=== PATIENT | male | born 1930 | race Caucasian/White ===

== ENCOUNTER → 2016-03-01 | Outpatient (CLI) | payer MEDICARE ==
[2016-03-01 14:20] LABS: ALBUMIN 3.5 GM/DL (3.2-5.2); ALBUMIN/GLOBULIN RATIO 1.03 (1.00-1.93); ALKALINE PHOSPHATASE 114 U/L (45-117); ALT/SGPT 23 U/L (12-78); ANION GAP 10 MEQ/L (8-16); AST/SGOT 14 U/L (15-37); BILIRUBIN,TOTAL 0.5 MG/DL (0.2-1.0); BLOOD UREA NITROGEN 26 MG/DL (7-18); CARBON DIOXIDE LEVEL 27 MEQ/L (21-32); CHLORIDE LEVEL 104 MEQ/L (98-107); CREATININE FOR GFR 1.19 MG/DL (0.70-1.30); GLOMERULAR FILTRATION RATE > 60.0 (>35); GLUCOSE, FASTING 123 MG/DL (83-110); POTASSIUM SERUM 4.1 MEQ/L (3.5-5.1); SODIUM LEVEL 141 MEQ/L (136-145); TOTAL PROTEIN 6.9 GM/DL (6.4-8.2); URIC ACID 4.7 MG/DL (3.5-7.2)
== END ==
LOC: M LAB 11:23
PROVIDERS: ATTEND Emergency Medicine
DX: I10 Essential (primary) hypertension (principal)

== ENCOUNTER → 2016-04-03 | Outpatient (CLI) | payer MEDICARE ==
[2016-04-03 14:00] LABS: ALBUMIN 3.6 GM/DL (3.2-5.2); ALBUMIN/GLOBULIN RATIO 0.97 (1.00-1.93); BILIRUBIN,TOTAL 0.7 MG/DL (0.2-1.0); CALCIUM LEVEL 9.2 MG/DL (8.8-10.2); CREATININE FOR GFR 1.33 MG/DL (0.70-1.30); GLOMERULAR FILTRATION RATE 54.5 (>35); POTASSIUM SERUM 4.5 MEQ/L (3.5-5.1); TOTAL PROTEIN 7.3 GM/DL (6.4-8.2); URIC ACID 4.5 MG/DL (3.5-7.2)
== END ==
LOC: M WUC 09:44
PROVIDERS: ATTEND Emergency Medicine
DX: F43.23 Adjustment disorder with mixed anxiety and depressed mood (principal); M10.9 Gout, unspecified; I10 Essential (primary) hypertension

== ENCOUNTER → 2016-04-17 | Day surgery (SDC) | payer MEDICARE ==
[~2016-04-17] VITALS: Ht 160 cm; Wt 68.9 kg
[~2016-04-17] MED LIST: ALLO15TA PO; ALPR1TAB6 PO; ASPI81TA85 PO; BACT2OIN12; BETAMETHASONE SOLUSPAN 6MG/ML INJ 5ML (J0702) As Ordered ONE; BSS with VANC/TOB/EPI for EYE CASES IR ONE; CYCLOPENTOLATE 2% OPHTH SOLN As Ordered ONE; CYCLOPENTOLATE 2% OPHTH SOLN OS ONE; FINA5TAB2 PO; FISH306C PO; FOSI10TA10 PO; HEALON DUET (HEALON 10MG/ML 0.55ML & HEALON ENDOCOAT 30MG/ML 0.85ML) As Ordered ONE; LIDOCAINE 1% SDV 5 ML VIAL As Ordered ONE; LIDOCAINE 2% W/EPIN INJ 20ML **PRES FREE As Ordered ONE; LIDOCAINE 4% INJ 5 ML AMP OU ONE; MAGN400C2 PO; MIDAZOLAM INJ 2 MG/2 ML VIAL (J2250) As Ordered ONE; MOXIFLOXACIN IN BSS 0.25MG/0.25ML INTRACAMERAL INJ (OR EYE ONLY)(J2280) As Ordered ONE; MULT1TAB18 PO; OFLOXACIN 0.3 % (OCUFLOX) OPTH SOL 5ML As Ordered ONE; OFLOXACIN 0.3 % (OCUFLOX) OPTH SOL 5ML OS ONE; OMEP20CA3 PO; OSTETAB4 PO; PARO30TA PO; PHENYLEPHRINE 2.5% OPHTH SOL 2ML As Ordered ONE; PHENYLEPHRINE 2.5% OPHTH SOL 2ML OS ONE; POVIDONE-IODINE 5% OPHTH PREP SOL 30ML As Ordered ONE; TOBRADEX OPHTH OINT 3.5 GM As Ordered ONE; TOBRAMYCIN INJ 80 MG/2 ML VIAL (J3260) As Ordered ONE; TRIAMCINOLONE PRES FR 40 MG/ML 1ML(TRIESENCE)(OR EYE ONLY)(J3300 PER 1MG) As Ordered ONE; TROPICAMIDE 1% OPHTH SOLN 2 ML As Ordered ONE; TROPICAMIDE 1% OPHTH SOLN 2 ML OS ONE; VITA-115 PO; VITA250011 PO; fentaNYL 100 MCG/2 ML INJECTION (J3010) As Ordered ONE
[2016-04-17 12:40] VITALS: BP 137/70
== END | disposition home or self-care (01) ==
LOC: M SDC 08:43
PROVIDERS: ATTEND Ophthalmology
DX: H26.9 Unspecified cataract (principal); K21.9 Gastro-esophageal reflux disease without esophagitis; F41.9 Anxiety disorder, unspecified; F32.9 Major depressive disorder, single episode, unspecified; S01.20XD Unspecified open wound of nose, subsequent encounter; Z88.2 Allergy status to sulfonamides; Z91.012 Allergy to eggs; Z91.048 Other nonmedicinal substance allergy status; Z91.041 Radiographic dye allergy status; Z79.899 Other long term (current) drug therapy; Z79.82 Long term (current) use of aspirin
CPT/HCPCS: 66984; J0702; J2250; J2280; J3010; J3260; J3300; V2632

== ENCOUNTER 2016-08-16 08:22 | Emergency (ER) | payer MEDICARE ==
[~2016-08-16] VITALS: Ht 165.1 cm; Wt 65.9 kg
[~2016-08-16 08:22] MED LIST changes: -BETAMETHASONE SOLUSPAN 6MG/ML INJ 5ML (J0702) As Ordered ONE; -BSS with VANC/TOB/EPI for EYE CASES IR ONE; -CYCLOPENTOLATE 2% OPHTH SOLN As Ordered ONE; -CYCLOPENTOLATE 2% OPHTH SOLN OS ONE; -FOSI10TA10 PO; +FOSI10TA2 PO; -HEALON DUET (HEALON 10MG/ML 0.55ML & HEALON ENDOCOAT 30MG/ML 0.85ML) As Ordered ONE; -LIDOCAINE 1% SDV 5 ML VIAL As Ordered ONE; -LIDOCAINE 2% W/EPIN INJ 20ML **PRES FREE As Ordered ONE; -LIDOCAINE 4% INJ 5 ML AMP OU ONE; -MIDAZOLAM INJ 2 MG/2 ML VIAL (J2250) As Ordered ONE; -MOXIFLOXACIN IN BSS 0.25MG/0.25ML INTRACAMERAL INJ (OR EYE ONLY)(J2280) As Ordered ONE; -OFLOXACIN 0.3 % (OCUFLOX) OPTH SOL 5ML As Ordered ONE; -OFLOXACIN 0.3 % (OCUFLOX) OPTH SOL 5ML OS ONE; -PHENYLEPHRINE 2.5% OPHTH SOL 2ML As Ordered ONE; -PHENYLEPHRINE 2.5% OPHTH SOL 2ML OS ONE; -POVIDONE-IODINE 5% OPHTH PREP SOL 30ML As Ordered ONE; -TOBRADEX OPHTH OINT 3.5 GM As Ordered ONE; -TOBRAMYCIN INJ 80 MG/2 ML VIAL (J3260) As Ordered ONE; -TRIAMCINOLONE PRES FR 40 MG/ML 1ML(TRIESENCE)(OR EYE ONLY)(J3300 PER 1MG) As Ordered ONE; -TROPICAMIDE 1% OPHTH SOLN 2 ML As Ordered ONE; -TROPICAMIDE 1% OPHTH SOLN 2 ML OS ONE; -fentaNYL 100 MCG/2 ML INJECTION (J3010) As Ordered ONE
[2016-08-16] MEDS ORDERED: CLON0.5T PO (08:56)
[2016-08-16] MEDS ORDERED: MORPHINE 2 MG/ML 1ML SYRINGE IV ONE (10:00)
--- NOTE | 2016-08-16 10:26 | REP ---
Clinical: Left flank pain. Comparison: 12/20/2008 Findings: Mild acute left-sided obstructive uropathy with hydroureteronephrosis, perinephric and periureteral stranding secondary to a 2 mm obstructing calculus in the distal left ureter (image [id number]). Multiple small bilateral renal calculi are identified measuring up to 3 mm. Liver, spleen, pancreas, bilateral adrenal glands are normal for noncontrast evaluation. The enteric system is without obstruction or acute inflammatory process. Normal terminal ileum and appendix identified in the right lower quadrant. Sigmoid diverticulosis noted without acute diverticulitis. Pelvis demonstrates an enlarged prostate gland measuring 4.8 cm transverse diameter having mass effect on the otherwise normal bladder. Atherosclerotic changes of the aorta and vasculature without aneurysm. Lung bases demonstrate left lower lobe consolidation and trace fibroatelectatic changes. Mild cardiomegaly. Impression: 1. Acute left-sided obstructive uropathy with hydronephrosis and periureteral stranding secondary to a 2 mm obstructing calculus in the distal left ureter. Bilateral nonobstructing calculi measure up to 3 mm. 2. Small right lower lobe consolidation and bibasilar fibro atelectatic changes may warrant followup to resolution. 3. Enlarged prostate gland with mass effect on the base of the bladder. 4. Sigmoid diverticulosis without acute diverticulitis. Signed by Elias Youngblood MD 08/16/2016 10:18 A
[2016-08-16 10:30] LABS: BASO % 0.5 % (0.0-1.0); EOS # 0.2 K/mm3 (0.0-0.50); EOS % 1.8 % (0.0-3.0); LARGE UNSTAINED CELL # 0.1 K/mm3 (0.0-0.4); LARGE UNSTAINED CELL % 0.9 % (0.0-4.0); LYMPH # 1.7 K/mm3 (1.5-4.5); LYMPH % 16.5 % (24.0-44.0); MEAN CORPUSCULAR HEMOGLOBIN 31.2 pg (27.0-33.0); MEAN CORPUSCULAR HGB CONC 32.8 g/dl (32.0-36.5); MEAN CORPUSCULAR VOLUME 94.9 fl (80.0-96.0); MONO # 0.4 K/mm3 (0.0-0.8); MONO % 3.5 % (0.0-5.0); NEUTROPHILS # 7.7 K/mm3 (1.8-7.7); NEUTROPHILS % 76.9 % (36.0-66.0); PLATELET COUNT, AUTOMATED 291 k/mm3 (150-450)
[2016-08-16 10:43] LABS: ANION GAP 6 MEQ/L (8-16); BLOOD UREA NITROGEN 21 MG/DL (7-18); CALCIUM LEVEL 7.2 MG/DL (8.8-10.2); CARBON DIOXIDE LEVEL 25 MEQ/L (21-32); CHLORIDE LEVEL 112 MEQ/L (98-107); CREATININE FOR GFR 0.89 MG/DL (0.70-1.30); GLOMERULAR FILTRATION RATE > 60.0 (>35); GLUCOSE, FASTING 112 MG/DL (83-110); POTASSIUM SERUM 3.6 MEQ/L (3.5-5.1); SODIUM LEVEL 143 MEQ/L (136-145)
[2016-08-16] MEDS ORDERED: MORPHINE 4 MG/ML 1ML SYRINGE IV ONE (11:00)
[2016-08-16] MEDS ORDERED: ONDANSETRON 4MG/2ML VIAL (J2405) IV ONE (11:00)
[2016-08-16] MEDS ORDERED: TAMSULOSIN 0.4 MG CAP PO ONE (11:30)
[2016-08-16] MEDS ORDERED: FLOM5CAP PO (11:53)
[2016-08-16] MEDS ORDERED: NORC1TAB4 PO (11:56)
[2016-08-16 12:36] VITALS: BP 133/73
== END 2016-08-16 12:39 | disposition home or self-care (01) ==
LOC: M ED 08:22
DX: N20.0 Calculus of kidney (principal); Z87.442 Personal history of urinary calculi; Z91.012 Allergy to eggs; Z91.041 Radiographic dye allergy status; Z88.2 Allergy status to sulfonamides; Z79.899 Other long term (current) drug therapy; Z79.82 Long term (current) use of aspirin
CPT/HCPCS: 74176; 80048; 81001; 85025; 93041; 96374; 96375; 96376; 99284; J2405

== ENCOUNTER → 2016-08-27 | Day surgery (SDC) | payer MEDICARE ==
[~2016-08-27] VITALS: Ht 160 cm; Wt 71.7 kg
[~2016-08-27] MED LIST changes: +BSS with VANC/TOB/EPI for EYE CASES IR ONE; +CLON0.5T PO; +CYCLOPENTOLATE 2% OPHTH SOLN 2ML BTL OS ONE; +FLOM5CAP PO; +HEALON DUET (HEALON 10MG/ML 0.55ML & HEALON ENDOCOAT 30MG/ML 0.85ML) As Ordered ONE; +LIDOCAINE 1% SDV 5 ML VIAL As Ordered ONE; +LIDOCAINE 2% W/EPIN INJ 20ML **PRES FREE As Ordered ONE; +LIDOCAINE 4% INJ 5 ML AMP OD ONE; +LR 1,000 ML IV ONE; +MIDAZOLAM INJ 2 MG/2 ML VIAL (J2250) As Ordered ONE; +MOXIFLOXACIN IN BSS 0.25MG/0.25ML INTRACAMERAL INJ (OR EYE ONLY)(J2280) As Ordered ONE; +NORC1TAB4 PO; +OFLOXACIN 0.3 % (OCUFLOX) OPTH SOL 5ML OD ONE; +PHENYLEPHRINE 2.5% OPHTH SOL 2ML OD ONE; +POVIDONE-IODINE 5% OPHTH PREP SOL 30ML As Ordered ONE; +TRIAMCINOLONE PRES FR 40 MG/ML 1ML(TRIESENCE)(OR EYE ONLY)(J3300 PER 1MG) As Ordered ONE; +TROPICAMIDE 1% OPHTH SOLN 2ML OD ONE; +fentaNYL 100 MCG/2 ML INJECTION (J3010) As Ordered ONE
[2016-08-27 08:35] VITALS: BP 155/77
== END | disposition home or self-care (01) ==
LOC: M SDC 06:05
PROVIDERS: ATTEND Ophthalmology
DX: H26.9 Unspecified cataract (principal); I10 Essential (primary) hypertension; E78.00 Pure hypercholesterolemia, unspecified; K21.9 Gastro-esophageal reflux disease without esophagitis; F41.9 Anxiety disorder, unspecified; F32.9 Major depressive disorder, single episode, unspecified; N40.0 Benign prostatic hyperplasia without lower urinary tract symptoms; Z88.2 Allergy status to sulfonamides; Z91.012 Allergy to eggs; Z91.048 Other nonmedicinal substance allergy status; Z91.041 Radiographic dye allergy status; Z79.899 Other long term (current) drug therapy; Z79.82 Long term (current) use of aspirin; Z87.442 Personal history of urinary calculi; Z87.891 Personal history of nicotine dependence
CPT/HCPCS: 66984; J2250; J2280; J3010; J3300; V2632

== ENCOUNTER → 2016-09-27 | Outpatient (CLI) | payer MEDICARE ==
[~2016-09-27] MED LIST changes: -BSS with VANC/TOB/EPI for EYE CASES IR ONE; -CYCLOPENTOLATE 2% OPHTH SOLN 2ML BTL OS ONE; -HEALON DUET (HEALON 10MG/ML 0.55ML & HEALON ENDOCOAT 30MG/ML 0.85ML) As Ordered ONE; -LIDOCAINE 1% SDV 5 ML VIAL As Ordered ONE; -LIDOCAINE 2% W/EPIN INJ 20ML **PRES FREE As Ordered ONE; -LIDOCAINE 4% INJ 5 ML AMP OD ONE; -LR 1,000 ML IV ONE; -MIDAZOLAM INJ 2 MG/2 ML VIAL (J2250) As Ordered ONE; -MOXIFLOXACIN IN BSS 0.25MG/0.25ML INTRACAMERAL INJ (OR EYE ONLY)(J2280) As Ordered ONE; -OFLOXACIN 0.3 % (OCUFLOX) OPTH SOL 5ML OD ONE; -PHENYLEPHRINE 2.5% OPHTH SOL 2ML OD ONE; -POVIDONE-IODINE 5% OPHTH PREP SOL 30ML As Ordered ONE; -TRIAMCINOLONE PRES FR 40 MG/ML 1ML(TRIESENCE)(OR EYE ONLY)(J3300 PER 1MG) As Ordered ONE; -TROPICAMIDE 1% OPHTH SOLN 2ML OD ONE; -fentaNYL 100 MCG/2 ML INJECTION (J3010) As Ordered ONE
== END ==
LOC: M WUC 11:37
PROVIDERS: ATTEND Ophthalmology
DX: I77.6 Arteritis, unspecified (principal)

== ENCOUNTER → 2016-10-01 | Outpatient (CLI) | payer MEDICARE ==
[2016-10-01 13:51] LABS: ALBUMIN 3.3 GM/DL (3.2-5.2); ANION GAP 8 MEQ/L (8-16); BLOOD UREA NITROGEN 30 MG/DL (7-18); CALCIUM LEVEL 8.3 MG/DL (8.8-10.2); CARBON DIOXIDE LEVEL 28 MEQ/L (21-32); CHLORIDE LEVEL 110 MEQ/L (98-107); CHOLESTEROL LEVEL 183 MG/DL (<200); CREATININE FOR GFR 1.08 MG/DL (0.70-1.30); FOLATE > 24.0 NG/ML; GLOMERULAR FILTRATION RATE > 60.0 (>35); GLUCOSE, FASTING 100 MG/DL (83-110); MAGNESIUM LEVEL 2.3 MG/DL (1.8-2.4); PHOSPHORUS LEVEL 3.5 MG/DL (2.5-4.9); POTASSIUM SERUM 4.5 MEQ/L (3.5-5.1); SODIUM LEVEL 146 MEQ/L (136-145); TRIGLYCERIDES LEVEL 122 MG/DL (<150); URIC ACID 3.9 MG/DL (3.5-7.2); VITAMIN B12 LEVEL > 2000 PG/ML
== END ==
LOC: M WUC 10:04
PROVIDERS: ATTEND Emergency Medicine
DX: G47.62 Sleep related leg cramps (principal); E55.9 Vitamin D deficiency, unspecified; Z79.899 Other long term (current) drug therapy

== ENCOUNTER → 2017-02-26 | Outpatient (CLI) | payer MEDICARE ==
[2017-02-26 13:44] LABS: BASO # 0.1 10^3/uL (0.0-0.2); BASO % 0.9 % (0.0-1.0); EOS # 1.1 10^3/uL (0.0-0.50); EOS % 12.1 % (0.0-3.0); HEMATOCRIT 44.3 % (42.0-52.0); HEMOGLOBIN 14.2 g/dl (14.0-18.0); IMMATURE GRANULOCYTE % 0.3 % (0-0); LYMPH # 1.7 10^3/uL (1.5-4.5); LYMPH % 19.2 % (24.0-44.0); MEAN CORPUSCULAR HGB CONC 32.1 g/dl (32.0-36.5); MEAN CORPUSCULAR VOLUME 93.5 fl (80.0-96.0); MONO # 0.7 10^3/uL (0.0-0.8); MONO % 7.8 % (0.0-5.0); NEUTROPHILS # 5.4 10^3/uL (1.8-7.7); NEUTROPHILS % 59.7 % (36.0-66.0); PLATELET COUNT, AUTOMATED 331 10^3/uL (150-450); RED BLOOD COUNT 4.74 10^6/uL (4.30-6.10); RED CELL DISTRIBUTION WIDTH 14.2 % (11.5-14.5)
[2017-02-26 14:06] LABS: FOLATE > 24.0 NG/ML; TOTAL 25(OH) VITAMIN D 35.2 NG/ML (30.0-100.0); VITAMIN B12 LEVEL > 2000 PG/ML
[2017-02-26 14:09] LABS: ALBUMIN 3.6 GM/DL (3.2-5.2); ALBUMIN/GLOBULIN RATIO 1.09 (1.00-1.93); ALKALINE PHOSPHATASE 137 U/L (45-117); ALT/SGPT 28 U/L (12-78); ANION GAP 5 MEQ/L (8-16); AST/SGOT 20 U/L (7-37); BILIRUBIN,TOTAL 0.3 MG/DL (0.2-1.0); BLOOD UREA NITROGEN 28 MG/DL (7-18); CALCIUM LEVEL 9.5 MG/DL (8.8-10.2); CARBON DIOXIDE LEVEL 30 MEQ/L (21-32); CHLORIDE LEVEL 107 MEQ/L (98-107); CHOLESTEROL LEVEL 181 MG/DL (<200); CHOLESTEROL RISK RATIO 2.873 (<5); CREATININE FOR GFR 1.05 MG/DL (0.70-1.30); GLOMERULAR FILTRATION RATE > 60.0 (>35); GLUCOSE, FASTING 115 MG/DL (83-110); HDL CHOLESTEROL 63 MG/DL (>40); LDL CHOLESTEROL 92.6 MG/DL (<100); MAGNESIUM LEVEL 2.2 MG/DL (1.8-2.4); NON-HDL-C 118 MG/DL; POTASSIUM SERUM 4.7 MEQ/L (3.5-5.1); SODIUM LEVEL 142 MEQ/L (136-145); TOTAL PROTEIN 6.9 GM/DL (6.4-8.2); TRIGLYCERIDES LEVEL 127 MG/DL (<150); URIC ACID 3.7 MG/DL (3.5-7.2)
== END ==
LOC: M WUC 09:34
DX: G47.62 Sleep related leg cramps (principal); E55.9 Vitamin D deficiency, unspecified; R25.3 Fasciculation; I10 Essential (primary) hypertension; M10.9 Gout, unspecified; R25.2 Cramp and spasm
CPT/HCPCS: 82746

== ENCOUNTER → 2017-04-04 | Outpatient (REF) | payer MEDICARE ==
[2017-04-04 14:12] LABS: TOTAL PROTEIN 6.5 GM/DL (6.4-8.2)
[2017-04-04 14:17] LABS: VITAMIN B12 LEVEL > 2000 PG/ML (247-911)
[2017-04-04 14:18] LABS: ESTIMATED AVERAGE GLUCOSE 120 MG/DL (60-110); FOLATE > 24.0 NG/ML (>5.4); HEMOGLOBIN A1c 5.8 %
[2017-04-06 08:06] LABS: CERULOPLASMIN 24.2 mg/dL (16.0-31.0)
[2017-04-06 08:06] LABS: COPPER PLASMA 110 ug/dL (72-166)
[2017-04-09 10:32] LABS: ALBUMIN % 55.9 % (55.8-66.1); ALPHA-1-GLOBULIN % 4.6 % (2.9-4.9); ALPHA-2-GLOBULINS % 11.1 % (7.1-11.8); BETA-1-GLOBULINS % 7.6 % (4.7-7.2); BETA-2-GLOBULINS % 5.2 % (3.2-6.5)
[2017-04-09 10:33] LABS: ALBUMIN 3.63 GM/DL (3.29-5.55); ALPHA-2-GLOBULINS 0.72 GM/DL (0.42-0.99); BETA-1-GLOBULINS 0.49 GM/DL (0.28-0.60); BETA-2-GLOBULINS 0.34 GM/DL (0.19-0.55); GAMMA GLOBULIN % 15.6 % (11.1-18.8); GAMMA GLOBULINS 1.01 GM/DL (0.65-1.58)
== END ==
LOC: M LABNEURO 09:37
DX: E11.40 Type 2 diabetes mellitus with diabetic neuropathy, unspecified (principal); E61.0 Copper deficiency
CPT/HCPCS: 82525

== ENCOUNTER 2017-04-25 09:44 | Inpatient (IN) | payer MEDICARE ==
[2017-04-25 10:21] LABS: BASO # 0.1 10^3/uL (0.0-0.2); BASO % 0.8 % (0.0-1.0); EOS # 1.3 10^3/uL (0.0-0.50); EOS % 12.3 % (0.0-3.0); HEMATOCRIT 42.5 % (42.0-52.0); HEMOGLOBIN 13.9 g/dl (14.0-18.0); IMMATURE GRANULOCYTE % 0.3 % (0-3.0); LYMPH # 1.7 10^3/uL (1.5-4.5); LYMPH % 16.5 % (24.0-44.0); MEAN CORPUSCULAR HEMOGLOBIN 29.6 pg (27.0-33.0); MEAN CORPUSCULAR HGB CONC 32.7 g/dl (32.0-36.5); MEAN CORPUSCULAR VOLUME 90.6 fl (80.0-96.0); MONO # 0.8 10^3/uL (0.0-0.8); MONO % 7.2 % (0.0-5.0); NEUTROPHILS # 6.6 10^3/uL (1.8-7.7); NEUTROPHILS % 62.9 % (36.0-66.0); PLATELET COUNT, AUTOMATED 301 10^3/uL (150-450); RED BLOOD COUNT 4.69 10^6/uL (4.30-6.10); RED CELL DISTRIBUTION WIDTH 13.5 % (11.5-14.5); WHITE BLOOD COUNT 10.5 10^3/uL (4.0-10.0)
[2017-04-25 10:31] LABS: INR 0.94; PROTHROMBIN TIME 12.7 SECONDS (12.4-14.5)
[2017-04-25] MEDS: diphenhydrAMINE INJ 50MG/ML VIAL (J1200) IV (10:33)
[2017-04-25] MEDS: ONDANSETRON 4MG/2ML VIAL (J2405) IV (10:33)
[2017-04-25 10:48] LABS: NT-PRO BNP 54 PG/ML (<450)
[2017-04-25 10:48] LABS: ALBUMIN 2.9 GM/DL (3.2-5.2); ALBUMIN/GLOBULIN RATIO 0.78 (1.00-1.93); ALKALINE PHOSPHATASE 119 U/L (45-117); ALT/SGPT 19 U/L (12-78); ANION GAP 6 MEQ/L (8-16); AST/SGOT 13 U/L (7-37); BILIRUBIN,DIRECT < 0.1 MG/DL (0.0-0.2); BILIRUBIN,TOTAL 0.3 MG/DL (0.2-1.0); BLOOD UREA NITROGEN 31 MG/DL (7-18); CALCIUM LEVEL 8.8 MG/DL (8.8-10.2); CARBON DIOXIDE LEVEL 32 MEQ/L (21-32); CHLORIDE LEVEL 104 MEQ/L (98-107); CK-MB VALUE MASS 2.3 NG/ML (0.0-3.6); CPK CREATINE PHOSPHOKINASE 49 U/L (39-308); CREATININE FOR GFR 1.09 MG/DL (0.70-1.30); GLOMERULAR FILTRATION RATE > 60.0 (>35); GLUCOSE, FASTING 132 MG/DL (70-100); LIPASE 106 U/L (73-393); MB/CK RELATIVE INDEX 4.69 (< OR =4); POTASSIUM SERUM 3.8 MEQ/L (3.5-5.1); SODIUM LEVEL 142 MEQ/L (136-145); TOTAL PROTEIN 6.6 GM/DL (6.4-8.2); TROPONIN I < 0.02 NG/ML (< 0.10)
[2017-04-25] MEDS ORDERED: ISOVUE-370 76% 100ML VIAL (Q9967) As Ordered (11:25)
[2017-04-25] MEDS: ACETAMINOPHEN TAB 650MG DOSE (2X325MG) PO (11:26)
[2017-04-25] MEDS ORDERED: IPRATROPIUM 0.5MG/ALBUTEROL 2.5MG INH SOL UD 3ML (DUONEB)(J7620) NEB (14:15)
[2017-04-25] MEDS ORDERED: ACETAMINOPHEN TAB 650MG DOSE (2X325MG) PO (14:15)
[2017-04-25] MEDS ORDERED: ONDANSETRON 4MG/2ML VIAL (J2405) IV ×2 (14:15→15:45)
[2017-04-25 14:52] LABS: TOTAL 25(OH) VITAMIN D 50.7 NG/ML (30.0-100.0)
[2017-04-25 15:00] LABS: MAGNESIUM LEVEL 2.1 MG/DL (1.8-2.4)
[2017-04-25] MEDS ORDERED: fentaNYL 100 MCG/2 ML INJECTION (J3010) IV (15:45)
[2017-04-25] MEDS ORDERED: METOCLOPRAMIDE INJ 10MG/2ML VIAL (J2765) IV (15:45)
[2017-04-25] MEDS ORDERED: PERCOCET 5MG/325MG TAB PO (15:45)
[2017-04-25] MEDS: LR 1,000 ML IV (15:45)
[2017-04-25] MEDS ORDERED: MEPERIDINE INJ 25 MG/ML VIAL (J2175) IV (15:45)
[2017-04-25] MEDS: AZITHROMYCIN INJ 500 MG, VIAL MATE ADAPTER 1 EACH in D5W 250 ML IV (16:14)
[2017-04-25] MEDS: FINASTERIDE 5 MG TAB PO (18:03)
[2017-04-25] MEDS: CEFTRIAXONE SOD 1 GM in APPROPRIATE DILUENT 1 EA IV (18:03)
[2017-04-25] MEDS: ALLOPURINOL 300 MG TAB PO (18:03)
[2017-04-25 18:34] LABS: CPK CREATINE PHOSPHOKINASE 40 U/L (39-308); TROPONIN I < 0.02 NG/ML (< 0.10)
[2017-04-25 18:35] LABS: CK-MB VALUE MASS 1.9 NG/ML (0.0-3.6); MB/CK RELATIVE INDEX 4.75 (< OR =4)
[2017-04-25] MEDS: IPRATROPIUM 0.5MG/ALBUTEROL 2.5MG INH SOL UD 3ML (DUONEB)(J7620) NEB (20:05)
[2017-04-25] MEDS ORDERED: ALLOPURINOL 300 MG TAB PO (21:00)
[2017-04-25] MEDS: GABAPENTIN 300 MG CAP PO (21:13)
[2017-04-25] MEDS: ASPIRIN 81 MG ENTERIC TAB PO (21:13)
[2017-04-25] MEDS: PARoxetine 20 MG TAB PO (21:14)
[2017-04-26] MEDS: IPRATROPIUM 0.5MG/ALBUTEROL 2.5MG INH SOL UD 3ML (DUONEB)(J7620) NEB ×4 (01:53→20:20)
[2017-04-26 04:42] LABS: REASON FOR REVIEW WBC/LEUKEMIA/BLAST; SLIDE REVIEW Report; SOURCE PERIPHERAL SMEAR
[2017-04-26 04:43] LABS: BASO # 0.1 10^3/uL (0.0-0.2); BASO % 0.8 % (0.0-1.0); EOS # 1.2 10^3/uL (0.0-0.50); EOS % 12.7 % (0.0-3.0); HEMATOCRIT 40.5 % (42.0-52.0); HEMOGLOBIN 13.3 g/dl (14.0-18.0); IMMATURE GRANULOCYTE % 0.6 % (0-3.0); LYMPH # 2.2 10^3/uL (1.5-4.5); LYMPH % 24.1 % (24.0-44.0); MEAN CORPUSCULAR HEMOGLOBIN 29.7 pg (27.0-33.0); MEAN CORPUSCULAR HGB CONC 32.8 g/dl (32.0-36.5); MEAN CORPUSCULAR VOLUME 90.4 fl (80.0-96.0); MONO # 0.9 10^3/uL (0.0-0.8); MONO % 9.3 % (0.0-5.0); NEUTROPHILS # 4.9 10^3/uL (1.8-7.7); NEUTROPHILS % 52.5 % (36.0-66.0); PLATELET COUNT, AUTOMATED 291 10^3/uL (150-450); RED BLOOD COUNT 4.48 10^6/uL (4.30-6.10); RED CELL DISTRIBUTION WIDTH 13.5 % (11.5-14.5); WHITE BLOOD COUNT 9.3 10^3/uL (4.0-10.0)
[2017-04-26 05:20] LABS: ALBUMIN 2.7 GM/DL (3.2-5.2); ALBUMIN/GLOBULIN RATIO 0.84 (1.00-1.93); ALKALINE PHOSPHATASE 108 U/L (45-117); ALT/SGPT 17 U/L (12-78); ANION GAP 6 MEQ/L (8-16); AST/SGOT 13 U/L (7-37); BILIRUBIN,TOTAL 0.2 MG/DL (0.2-1.0); BLOOD UREA NITROGEN 26 MG/DL (7-18); CALCIUM LEVEL 8.4 MG/DL (8.8-10.2); CARBON DIOXIDE LEVEL 32 MEQ/L (21-32); CHLORIDE LEVEL 105 MEQ/L (98-107); CK-MB VALUE MASS 1.1 NG/ML (0.0-3.6); CPK CREATINE PHOSPHOKINASE 37 U/L (39-308); CREATININE FOR GFR 1.21 MG/DL (0.70-1.30); GLOMERULAR FILTRATION RATE > 60.0 (>35); GLUCOSE, FASTING 100 MG/DL (70-100); MB/CK RELATIVE INDEX 2.97 (< OR =4); SODIUM LEVEL 143 MEQ/L (136-145); TOTAL PROTEIN 5.9 GM/DL (6.4-8.2); TROPONIN I < 0.02 NG/ML (< 0.10)
[2017-04-26 05:52] LABS: PREALBUMIN 22.5 MG/DL (20.0-40.0)
[2017-04-26 09:35] LABS: C REACTIVE PROTEIN QUANTITATIV 0.39 MG/DL (0.00-0.30)
[2017-04-26] MEDS: GABAPENTIN 300 MG CAP PO ×3 (09:37→20:45)
[2017-04-26] MEDS: OMEPRAZOLE 20 MG CAP PO (09:37)
[2017-04-26] MEDS: MAGNESIUM OXIDE 400 MG TAB (MAG-OX) PO (09:37)
[2017-04-26 10:27] LABS: CPK CREATINE PHOSPHOKINASE 39 U/L (39-308); TROPONIN I < 0.02 NG/ML (< 0.10)
[2017-04-26 10:28] LABS: CK-MB VALUE MASS 1.8 NG/ML (0.0-3.6); MB/CK RELATIVE INDEX 4.61 (< OR =4)
[2017-04-26] MEDS: VITAMIN D (CHOLECALCIFEROL) 400 INTERNATIONAL UNITS TAB PO (12:59)
[2017-04-26] MEDS: methylPREDNISolone INJ 125 MG/2 ML VIAL (J2930) IV ×2 (13:00→20:44)
[2017-04-26] MEDS: CEFTRIAXONE SOD 1 GM in APPROPRIATE DILUENT 1 EA IV (15:51)
[2017-04-26] MEDS: AZITHROMYCIN INJ 500 MG, VIAL MATE ADAPTER 1 EACH in D5W 250 ML IV (16:47)
[2017-04-26] MEDS: FINASTERIDE 5 MG TAB PO (17:45)
[2017-04-26] MEDS: ALLOPURINOL 300 MG TAB PO (17:45)
[2017-04-26] MEDS: ASPIRIN 81 MG ENTERIC TAB PO (20:45)
[2017-04-26] MEDS: HEPARIN SOD (PORCINE) 5000 UNITS/ML VIAL SQ (20:52)
[2017-04-26] MEDS: PARoxetine 20 MG TAB PO (20:52)
[2017-04-27] MEDS: IPRATROPIUM 0.5MG/ALBUTEROL 2.5MG INH SOL UD 3ML (DUONEB)(J7620) NEB ×4 (02:08→20:00)
[2017-04-27] MEDS: methylPREDNISolone INJ 125 MG/2 ML VIAL (J2930) IV ×2 (04:07→15:51)
[2017-04-27 05:08] LABS: BASO % 0.1 % (0.0-1.0); HEMATOCRIT 40.4 % (42.0-52.0); HEMOGLOBIN 13.3 g/dl (14.0-18.0); IMMATURE GRANULOCYTE % 0.7 % (0-3.0); LYMPH # 0.7 10^3/uL (1.5-4.5); LYMPH % 5.6 % (24.0-44.0); MEAN CORPUSCULAR HEMOGLOBIN 29.8 pg (27.0-33.0); MEAN CORPUSCULAR HGB CONC 32.9 g/dl (32.0-36.5); MEAN CORPUSCULAR VOLUME 90.6 fl (80.0-96.0); MONO # 0.1 10^3/uL (0.0-0.8); MONO % 0.9 % (0.0-5.0); NEUTROPHILS # 11.5 10^3/uL (1.8-7.7); NEUTROPHILS % 92.7 % (36.0-66.0); PLATELET COUNT, AUTOMATED 314 10^3/uL (150-450); RED BLOOD COUNT 4.46 10^6/uL (4.30-6.10); RED CELL DISTRIBUTION WIDTH 13.5 % (11.5-14.5); WHITE BLOOD COUNT 12.4 10^3/uL (4.0-10.0)
[2017-04-27 05:32] LABS: ALBUMIN/GLOBULIN RATIO 0.75 (1.00-1.93); ALKALINE PHOSPHATASE 113 U/L (45-117); ALT/SGPT 19 U/L (12-78); ANION GAP 10 MEQ/L (8-16); AST/SGOT 9 U/L (7-37); BILIRUBIN,TOTAL 0.2 MG/DL (0.2-1.0); BLOOD UREA NITROGEN 33 MG/DL (7-18); C REACTIVE PROTEIN QUANTITATIV 0.57 MG/DL (0.00-0.30); CARBON DIOXIDE LEVEL 27 MEQ/L (21-32); CHLORIDE LEVEL 104 MEQ/L (98-107); CREATININE FOR GFR 1.31 MG/DL (0.70-1.30); GLOMERULAR FILTRATION RATE 55.4 (>35); GLUCOSE, FASTING 186 MG/DL (70-100); MAGNESIUM LEVEL 2.4 MG/DL (1.8-2.4); POTASSIUM SERUM 3.9 MEQ/L (3.5-5.1); SODIUM LEVEL 141 MEQ/L (136-145)
[2017-04-27] MEDS: clonazePAM 0.5 MG TAB PO ×2 (08:47→20:46)
[2017-04-27] MEDS: OMEPRAZOLE 20 MG CAP PO (08:47)
[2017-04-27] MEDS: GABAPENTIN 300 MG CAP PO ×3 (08:47→20:46)
[2017-04-27] MEDS: MAGNESIUM OXIDE 400 MG TAB (MAG-OX) PO (08:47)
[2017-04-27] MEDS: HEPARIN SOD (PORCINE) 5000 UNITS/ML VIAL SQ ×2 (08:48→20:46)
[2017-04-27] MEDS: VITAMIN D (CHOLECALCIFEROL) 400 INTERNATIONAL UNITS TAB PO (12:13)
[2017-04-27] MEDS: AZITHROMYCIN INJ 500 MG, VIAL MATE ADAPTER 1 EACH in D5W 250 ML IV (15:52)
[2017-04-27] MEDS: CEFTRIAXONE SOD 1 GM in APPROPRIATE DILUENT 1 EA IV (15:52)
[2017-04-27] MEDS ORDERED: methylPREDNISolone INJ 125 MG/2 ML VIAL (J2930) IV (16:00)
[2017-04-27] MEDS: FINASTERIDE 5 MG TAB PO (17:59)
[2017-04-27] MEDS: ALLOPURINOL 300 MG TAB PO (17:59)
[2017-04-27] MEDS: PARoxetine 20 MG TAB PO (20:46)
[2017-04-27] MEDS: ASPIRIN 81 MG ENTERIC TAB PO (20:46)
[2017-04-28] MEDS: IPRATROPIUM 0.5MG/ALBUTEROL 2.5MG INH SOL UD 3ML (DUONEB)(J7620) NEB ×4 (01:44→20:00)
[2017-04-28] MEDS ORDERED: methylPREDNISolone INJ 40 MG/1 ML VIAL (J2920) IV (03:29)
[2017-04-28] MEDS: methylPREDNISolone INJ 40 MG/1 ML VIAL (J2920) IV ×2 (03:47→15:41)
[2017-04-28 04:57] LABS: BASO % 0.1 % (0.0-1.0); HEMATOCRIT 37.9 % (42.0-52.0); HEMOGLOBIN 12.6 g/dl (14.0-18.0); IMMATURE GRANULOCYTE % 0.8 % (0-3.0); LYMPH % 4.7 % (24.0-44.0); MEAN CORPUSCULAR HEMOGLOBIN 29.7 pg (27.0-33.0); MEAN CORPUSCULAR HGB CONC 33.2 g/dl (32.0-36.5); MEAN CORPUSCULAR VOLUME 89.4 fl (80.0-96.0); MONO % 4.8 % (0.0-5.0); NEUTROPHILS % 89.6 % (36.0-66.0); PLATELET COUNT, AUTOMATED 311 10^3/uL (150-450); RED BLOOD COUNT 4.24 10^6/uL (4.30-6.10); RED CELL DISTRIBUTION WIDTH 13.8 % (11.5-14.5); WHITE BLOOD COUNT 21.2 10^3/uL (4.0-10.0)
[2017-04-28 05:14] LABS: ALBUMIN 2.7 GM/DL (3.2-5.2); ALBUMIN/GLOBULIN RATIO 0.75 (1.00-1.93); ALKALINE PHOSPHATASE 105 U/L (45-117); ALT/SGPT 16 U/L (12-78); ANION GAP 8 MEQ/L (8-16); AST/SGOT 13 U/L (7-37); BILIRUBIN,TOTAL 0.1 MG/DL (0.2-1.0); BLOOD UREA NITROGEN 37 MG/DL (7-18); C REACTIVE PROTEIN QUANTITATIV 0.31 MG/DL (0.00-0.30); CALCIUM LEVEL 8.5 MG/DL (8.8-10.2); CARBON DIOXIDE LEVEL 27 MEQ/L (21-32); CHLORIDE LEVEL 107 MEQ/L (98-107); CREATININE FOR GFR 1.24 MG/DL (0.70-1.30); GLUCOSE, FASTING 191 MG/DL (70-100); MAGNESIUM LEVEL 2.3 MG/DL (1.8-2.4); POTASSIUM SERUM 3.7 MEQ/L (3.5-5.1); SODIUM LEVEL 142 MEQ/L (136-145); TOTAL PROTEIN 6.3 GM/DL (6.4-8.2)
[2017-04-28] MEDS: OMEPRAZOLE 20 MG CAP PO (08:52)
[2017-04-28] MEDS: GABAPENTIN 300 MG CAP PO ×3 (08:52→20:50)
[2017-04-28] MEDS: clonazePAM 0.5 MG TAB PO (08:52)
[2017-04-28] MEDS: HEPARIN SOD (PORCINE) 5000 UNITS/ML VIAL SQ ×2 (08:53→20:49)
[2017-04-28] MEDS: MAGNESIUM OXIDE 400 MG TAB (MAG-OX) PO (08:53)
[2017-04-28] MEDS: VITAMIN D (CHOLECALCIFEROL) 400 INTERNATIONAL UNITS TAB PO (12:23)
[2017-04-28] MEDS: CEFTRIAXONE SOD 1 GM in APPROPRIATE DILUENT 1 EA IV (14:08)
[2017-04-28] MEDS: AZITHROMYCIN INJ 500 MG, VIAL MATE ADAPTER 1 EACH in D5W 250 ML IV (15:41)
[2017-04-28] MEDS: ALLOPURINOL 300 MG TAB PO (17:47)
[2017-04-28] MEDS: FINASTERIDE 5 MG TAB PO (17:47)
[2017-04-28] MEDS: ASPIRIN 81 MG ENTERIC TAB PO (20:49)
[2017-04-28] MEDS: PARoxetine 20 MG TAB PO (20:50)
[2017-04-28] MEDS: PERCOCET 5MG/325MG TAB PO (23:50)
[2017-04-29] MEDS: IPRATROPIUM 0.5MG/ALBUTEROL 2.5MG INH SOL UD 3ML (DUONEB)(J7620) NEB ×4 (01:21→19:47)
[2017-04-29 05:04] LABS: BASO % 0.1 % (0.0-1.0); HEMATOCRIT 38.1 % (42.0-52.0); HEMOGLOBIN 12.6 g/dl (14.0-18.0); IMMATURE GRANULOCYTE % 0.6 % (0-3.0); LYMPH # 1.1 10^3/uL (1.5-4.5); MEAN CORPUSCULAR HEMOGLOBIN 29.4 pg (27.0-33.0); MEAN CORPUSCULAR HGB CONC 33.1 g/dl (32.0-36.5); MONO # 0.7 10^3/uL (0.0-0.8); MONO % 4.4 % (0.0-5.0); NEUTROPHILS # 13.6 10^3/uL (1.8-7.7); NEUTROPHILS % 87.9 % (36.0-66.0); PLATELET COUNT, AUTOMATED 308 10^3/uL (150-450); RED BLOOD COUNT 4.28 10^6/uL (4.30-6.10); RED CELL DISTRIBUTION WIDTH 13.9 % (11.5-14.5); WHITE BLOOD COUNT 15.5 10^3/uL (4.0-10.0)
[2017-04-29] MEDS: methylPREDNISolone INJ 40 MG/1 ML VIAL (J2920) IV (05:12)
[2017-04-29 05:29] LABS: ALBUMIN 2.7 GM/DL (3.2-5.2); ALBUMIN/GLOBULIN RATIO 0.71 (1.00-1.93); ALKALINE PHOSPHATASE 107 U/L (45-117); ALT/SGPT 19 U/L (12-78); ANION GAP 6 MEQ/L (8-16); AST/SGOT 10 U/L (7-37); BILIRUBIN,TOTAL 0.2 MG/DL (0.2-1.0); BLOOD UREA NITROGEN 40 MG/DL (7-18); C REACTIVE PROTEIN QUANTITATIV < 0.30 MG/DL (0.00-0.30); CALCIUM LEVEL 8.5 MG/DL (8.8-10.2); CARBON DIOXIDE LEVEL 30 MEQ/L (21-32); CHLORIDE LEVEL 105 MEQ/L (98-107); CREATININE FOR GFR 1.17 MG/DL (0.70-1.30); GLOMERULAR FILTRATION RATE > 60.0 (>35); GLUCOSE, FASTING 125 MG/DL (70-100); MAGNESIUM LEVEL 2.5 MG/DL (1.8-2.4); POTASSIUM SERUM 3.7 MEQ/L (3.5-5.1); SODIUM LEVEL 141 MEQ/L (136-145); TOTAL PROTEIN 6.5 GM/DL (6.4-8.2)
[2017-04-29] MEDS: GABAPENTIN 300 MG CAP PO ×3 (08:43→21:07)
[2017-04-29] MEDS: HEPARIN SOD (PORCINE) 5000 UNITS/ML VIAL SQ ×2 (08:43→21:04)
[2017-04-29] MEDS: OMEPRAZOLE 20 MG CAP PO (08:44)
[2017-04-29] MEDS: predniSONE 20 MG TAB PO ×2 (08:44→21:06)
[2017-04-29] MEDS: PERCOCET 5MG/325MG TAB PO ×3 (08:45→21:06)
[2017-04-29] MEDS: BENZONATATE 100 MG CAP PO ×3 (11:39→21:06)
[2017-04-29] MEDS: CHLORTHALIDONE 25 MG TAB PO (11:39)
[2017-04-29] MEDS: guaiFENesin ER 600 MG TAB PO ×2 (11:40→21:07)
[2017-04-29] MEDS: VITAMIN D (CHOLECALCIFEROL) 400 INTERNATIONAL UNITS TAB PO (12:46)
[2017-04-29] MEDS: CEFTRIAXONE SOD 1 GM in APPROPRIATE DILUENT 1 EA IV (15:00)
[2017-04-29] MEDS: clonazePAM 0.5 MG TAB PO (15:07)
[2017-04-29] MEDS: AZITHROMYCIN INJ 500 MG, VIAL MATE ADAPTER 1 EACH in D5W 250 ML IV (15:50)
[2017-04-29] MEDS: ALLOPURINOL 300 MG TAB PO (18:01)
[2017-04-29] MEDS: FINASTERIDE 5 MG TAB PO (18:01)
[2017-04-29] MEDS: PARoxetine 20 MG TAB PO (21:06)
[2017-04-29] MEDS: ASPIRIN 81 MG ENTERIC TAB PO (21:07)
[2017-04-30] MEDS: IPRATROPIUM 0.5MG/ALBUTEROL 2.5MG INH SOL UD 3ML (DUONEB)(J7620) NEB ×4 (01:40→19:19)
[2017-04-30 06:03] LABS: BASO % 0.2 % (0.0-1.0); HEMATOCRIT 39.7 % (42.0-52.0); IMMATURE GRANULOCYTE % 1.3 % (0-3.0); LYMPH # 1.1 10^3/uL (1.5-4.5); LYMPH % 9.5 % (24.0-44.0); MEAN CORPUSCULAR HEMOGLOBIN 29.2 pg (27.0-33.0); MEAN CORPUSCULAR HGB CONC 32.7 g/dl (32.0-36.5); MEAN CORPUSCULAR VOLUME 89.2 fl (80.0-96.0); MONO # 0.4 10^3/uL (0.0-0.8); MONO % 3.4 % (0.0-5.0); NEUTROPHILS % 85.6 % (36.0-66.0); PLATELET COUNT, AUTOMATED 302 10^3/uL (150-450); RED BLOOD COUNT 4.45 10^6/uL (4.30-6.10); RED CELL DISTRIBUTION WIDTH 13.5 % (11.5-14.5); WHITE BLOOD COUNT 11.7 10^3/uL (4.0-10.0)
[2017-04-30 06:36] LABS: ALBUMIN 2.6 GM/DL (3.2-5.2); ALBUMIN/GLOBULIN RATIO 0.67 (1.00-1.93); ALKALINE PHOSPHATASE 112 U/L (45-117); ALT/SGPT 18 U/L (12-78); ANION GAP 7 MEQ/L (8-16); AST/SGOT 9 U/L (7-37); BILIRUBIN,TOTAL 0.2 MG/DL (0.2-1.0); BLOOD UREA NITROGEN 37 MG/DL (7-18); C REACTIVE PROTEIN QUANTITATIV < 0.30 MG/DL (0.00-0.30); CALCIUM LEVEL 8.5 MG/DL (8.8-10.2); CARBON DIOXIDE LEVEL 30 MEQ/L (21-32); CHLORIDE LEVEL 103 MEQ/L (98-107); CREATININE FOR GFR 1.18 MG/DL (0.70-1.30); GLOMERULAR FILTRATION RATE > 60.0 (>35); GLUCOSE, FASTING 162 MG/DL (70-100); MAGNESIUM LEVEL 2.5 MG/DL (1.8-2.4); POTASSIUM SERUM 4.1 MEQ/L (3.5-5.1); SODIUM LEVEL 140 MEQ/L (136-145); TOTAL PROTEIN 6.5 GM/DL (6.4-8.2)
[2017-04-30] MEDS: GABAPENTIN 300 MG CAP PO ×3 (09:16→21:54)
[2017-04-30] MEDS: predniSONE 20 MG TAB PO ×2 (09:16→21:54)
[2017-04-30] MEDS: HEPARIN SOD (PORCINE) 5000 UNITS/ML VIAL SQ ×2 (09:16→21:53)
[2017-04-30] MEDS: CHLORTHALIDONE 25 MG TAB PO (09:16)
[2017-04-30] MEDS: guaiFENesin ER 600 MG TAB PO ×2 (09:16→21:54)
[2017-04-30] MEDS: BENZONATATE 100 MG CAP PO ×3 (09:16→21:54)
[2017-04-30] MEDS: OMEPRAZOLE 20 MG CAP PO (09:16)
[2017-04-30] MEDS: VITAMIN D (CHOLECALCIFEROL) 400 INTERNATIONAL UNITS TAB PO (12:18)
[2017-04-30] MEDS: ALLOPURINOL 300 MG TAB PO (17:24)
[2017-04-30] MEDS: FINASTERIDE 5 MG TAB PO (17:24)
[2017-04-30] MEDS: PERCOCET 5MG/325MG TAB PO (21:53)
[2017-04-30] MEDS: clonazePAM 0.5 MG TAB PO (21:53)
[2017-04-30] MEDS: PARoxetine 20 MG TAB PO (21:54)
[2017-04-30] MEDS: ASPIRIN 81 MG ENTERIC TAB PO (21:54)
[2017-05-01] MEDS: IPRATROPIUM 0.5MG/ALBUTEROL 2.5MG INH SOL UD 3ML (DUONEB)(J7620) NEB ×2 (01:11→07:50)
[2017-05-01 06:20] LABS: BASO % 0.4 % (0.0-1.0); HEMATOCRIT 40.4 % (42.0-52.0); HEMOGLOBIN 13.7 g/dl (14.0-18.0); IMMATURE GRANULOCYTE % 1.9 % (0-3.0); MEAN CORPUSCULAR HEMOGLOBIN 29.7 pg (27.0-33.0); MEAN CORPUSCULAR HGB CONC 33.9 g/dl (32.0-36.5); MEAN CORPUSCULAR VOLUME 87.6 fl (80.0-96.0); MONO # 0.4 10^3/uL (0.0-0.8); MONO % 4.1 % (0.0-5.0); NEUTROPHILS # 8.2 10^3/uL (1.8-7.7); NEUTROPHILS % 83.6 % (36.0-66.0); PLATELET COUNT, AUTOMATED 313 10^3/uL (150-450); RED BLOOD COUNT 4.61 10^6/uL (4.30-6.10); RED CELL DISTRIBUTION WIDTH 13.5 % (11.5-14.5); WHITE BLOOD COUNT 9.8 10^3/uL (4.0-10.0)
[2017-05-01 06:35] LABS: ALBUMIN 2.7 GM/DL (3.2-5.2); ALBUMIN/GLOBULIN RATIO 0.77 (1.00-1.93); ALKALINE PHOSPHATASE 106 U/L (45-117); ALT/SGPT 25 U/L (12-78); ANION GAP 6 MEQ/L (8-16); AST/SGOT 13 U/L (7-37); BILIRUBIN,TOTAL 0.3 MG/DL (0.2-1.0); BLOOD UREA NITROGEN 32 MG/DL (7-18); C REACTIVE PROTEIN QUANTITATIV < 0.30 MG/DL (0.00-0.30); CALCIUM LEVEL 8.4 MG/DL (8.8-10.2); CARBON DIOXIDE LEVEL 30 MEQ/L (21-32); CHLORIDE LEVEL 103 MEQ/L (98-107); CREATININE FOR GFR 1.09 MG/DL (0.70-1.30); GLOMERULAR FILTRATION RATE > 60.0 (>35); GLUCOSE, FASTING 140 MG/DL (70-100); MAGNESIUM LEVEL 2.4 MG/DL (1.8-2.4); POTASSIUM SERUM 3.7 MEQ/L (3.5-5.1); SODIUM LEVEL 139 MEQ/L (136-145); TOTAL PROTEIN 6.2 GM/DL (6.4-8.2)
[2017-05-01] MEDS: predniSONE 20 MG TAB PO (09:31)
[2017-05-01] MEDS: GABAPENTIN 300 MG CAP PO (09:31)
[2017-05-01] MEDS: BENZONATATE 100 MG CAP PO (09:31)
[2017-05-01] MEDS: guaiFENesin ER 600 MG TAB PO (09:31)
[2017-05-01] MEDS: HEPARIN SOD (PORCINE) 5000 UNITS/ML VIAL SQ (09:31)
[2017-05-01] MEDS: CHLORTHALIDONE 25 MG TAB PO (09:31)
[2017-05-01] MEDS: OMEPRAZOLE 20 MG CAP PO (09:31)
== END 2017-05-01 10:50 | disposition home or self-care (01) | DRG 198 ==
LOC: M MSPAV 04-29 17:19 → M ED 09:44 → M ED INP 14:17 → M PCU 15:36
DX: J82 Pulmonary eosinophilia, not elsewhere classified (principal); I12.9 Hypertensive chronic kidney disease with stage 1 through stage 4 chronic kidney disease, or unspecified chronic kidney disease; K21.9 Gastro-esophageal reflux disease without esophagitis; M10.9 Gout, unspecified; E83.42 Hypomagnesemia; E55.9 Vitamin D deficiency, unspecified; N40.0 Benign prostatic hyperplasia without lower urinary tract symptoms; F41.9 Anxiety disorder, unspecified; F32.9 Major depressive disorder, single episode, unspecified; G62.9 Polyneuropathy, unspecified; R63.4 Abnormal weight loss; K22.70 Barrett's esophagus without dysplasia; I87.2 Venous insufficiency (chronic) (peripheral); N18.9 Chronic kidney disease, unspecified; Z79.82 Long term (current) use of aspirin; Z79.899 Other long term (current) drug therapy; Z88.2 Allergy status to sulfonamides; Z91.041 Radiographic dye allergy status; Z88.8 Allergy status to other drugs, medicaments and biological substances; Z91.012 Allergy to eggs; Z90.49 Acquired absence of other specified parts of digestive tract; Z87.442 Personal history of urinary calculi

== ENCOUNTER → 2017-05-14 | Outpatient (REF) | payer MEDICARE ==
[2017-05-14 13:47] LABS: BASO % 0.2 % (0.0-1.0); EOS % 0.2 % (0.0-3.0); HEMATOCRIT 46.1 % (42.0-52.0); HEMOGLOBIN 15.3 g/dl (13.5-17.5); IMMATURE GRANULOCYTE % 1.1 % (0-3.0); LYMPH # 1.2 10^3/uL (1.5-4.5); LYMPH % 6.7 % (24.0-44.0); MEAN CORPUSCULAR HEMOGLOBIN 29.1 pg (27.0-33.0); MEAN CORPUSCULAR HGB CONC 33.2 g/dl (32.0-36.5); MEAN CORPUSCULAR VOLUME 87.6 fl (80.0-96.0); MONO # 0.6 10^3/uL (0.0-0.8); MONO % 3.3 % (0.0-5.0); NEUTROPHILS # 16.3 10^3/uL (1.8-7.7); NEUTROPHILS % 88.5 % (36.0-66.0); PLATELET COUNT, AUTOMATED 306 10^3/uL (150-450); RED BLOOD COUNT 5.26 10^6/uL (4.30-6.10); RED CELL DISTRIBUTION WIDTH 13.8 % (11.5-14.5); WHITE BLOOD COUNT 18.4 10^3/uL (4.0-10.0)
== END ==
LOC: M LAB REF 13:16
DX: J82 Pulmonary eosinophilia, not elsewhere classified (principal)
CPT/HCPCS: 85025

== ENCOUNTER → 2017-05-23 | Outpatient (CLI) | payer MEDICARE ==
[2017-05-23 13:34] LABS: THYROID STIMULATING HORMONE 0.389 uIU/ML (0.358-3.740)
[2017-05-23 13:34] LABS: FREE T4 3.89 NG/DL (0.76-1.46)
[2017-05-23 14:58] LABS: TOTAL T3 55.4 NG/DL (60.0-181.0)
[2017-05-24 08:33] LABS: THYROGLOBULIN ANTIBODY 16.1 U/ML (<60.0); THYROID PEROXIDASE ANTIBODY < 28.0 U/ML (<60.0)
[2017-05-25 08:07] LABS: THYROID BINDING GLOBULIN 8 ug/mL (13-39)
== END ==
LOC: M WUC 09:27
DX: R94.6 Abnormal results of thyroid function studies (principal)
CPT/HCPCS: 84443

== ENCOUNTER → 2017-05-27 | Outpatient (CLI) | payer MEDICARE | LOC: M RAD 13:20 | DX: D17.0 Benign lipomatous neoplasm of skin and subcutaneous tissue of head, face and neck (principal); R91.8 Other nonspecific abnormal finding of lung field | CPT/HCPCS: 71250 ==

== ENCOUNTER → 2017-05-27 | Outpatient (CLI) | payer MEDICARE | LOC: M RAD 13:11 | DX: R91.8 Other nonspecific abnormal finding of lung field (principal) ==

== ENCOUNTER 2017-06-07 01:32 | Emergency (ER) | payer MEDICARE ==
[2017-06-07 02:37] LABS: BASO # 0.1 10^3/uL (0.0-0.2); BASO % 0.4 % (0.0-1.0); EOS % 0.1 % (0.0-3.0); HEMATOCRIT 45.5 % (42.0-52.0); HEMOGLOBIN 15.1 g/dl (13.5-17.5); LYMPH # 1.9 10^3/uL (1.5-4.5); LYMPH % 11.5 % (24.0-44.0); MEAN CORPUSCULAR HEMOGLOBIN 29.2 pg (27.0-33.0); MEAN CORPUSCULAR HGB CONC 33.2 g/dl (32.0-36.5); MONO # 0.9 10^3/uL (0.0-0.8); MONO % 5.8 % (0.0-5.0); NEUTROPHILS % 80.2 % (36.0-66.0); PLATELET COUNT, AUTOMATED 287 10^3/uL (150-450); RED BLOOD COUNT 5.17 10^6/uL (4.30-6.10); RED CELL DISTRIBUTION WIDTH 14.5 % (11.5-14.5); WHITE BLOOD COUNT 16.2 10^3/uL (4.0-10.0)
[2017-06-07] MEDS: NS 500 ML IV (02:45)
[2017-06-07] MEDS: KETOROLAC 30 MG/ML VIAL (J1885) IV (02:47)
[2017-06-07] MEDS: MORPHINE 2 MG/ML 1ML SYRINGE (J2270) IV (02:47)
[2017-06-07 02:56] LABS: ANION GAP 6 MEQ/L (8-16); BLOOD UREA NITROGEN 36 MG/DL (7-18); CARBON DIOXIDE LEVEL 34 MEQ/L (21-32); CHLORIDE LEVEL 98 MEQ/L (98-107); CREATININE FOR GFR 1.54 MG/DL (0.70-1.30); GLOMERULAR FILTRATION RATE 45.9 (>35); GLUCOSE, FASTING 137 MG/DL (70-100); POTASSIUM SERUM 3.1 MEQ/L (3.5-5.1); SODIUM LEVEL 138 MEQ/L (136-145)
[2017-06-07 02:59] LABS: APPEARANCE, URINE CLEAR (CLEAR); BACTERIA, URINE AUTO NEGATIVE (NEGATIVE); BILIRUBIN, URINE AUTO NEGATIVE (NEGATIVE); BLOOD, URINE BLOOD 2+ (NEGATIVE); COLOR, URINE YELLOW (YELLOW); GLUCOSE, URINE (UA) AUTO NEGATIVE (NEGATIVE); KETONE, URINE AUTO NEGATIVE (NEGATIVE); LEUKOCYTE ESTERASE, URINE AUTO NEGATIVE (NEGATIVE); MUCUS, URINE SMALL (NEGATIVE); NITRITE, URINE AUTO NEGATIVE (NEGATIVE); PROTEIN, URINE AUTO 1+ mg/dL (NEGATIVE); RBC, URINE AUTO 6 /HPF (0-3); SPECIFIC GRAVITY URINE AUTO 1.017 (1.002-1.035); SQUAMOUS EPITHELIAL CELL UR AU 0 /HPF (0-6); UROBILINOGEN, URINE AUTO 0.2 mg/dL (0.0-2.0); WBC, URINE AUTO 1 /HPF (0-3)
[2017-06-07] MEDS: POTASSIUM CHLORIDE 10 MEQ SR TABLET PO (03:15)
== END 2017-06-07 03:59 | disposition home or self-care (01) ==
LOC: M ED 01:32
DX: N13.39 Other hydronephrosis (principal); I10 Essential (primary) hypertension; K21.9 Gastro-esophageal reflux disease without esophagitis; F33.9 Major depressive disorder, recurrent, unspecified; Z79.899 Other long term (current) drug therapy; Z79.82 Long term (current) use of aspirin; Z88.2 Allergy status to sulfonamides; Z91.012 Allergy to eggs; Z90.49 Acquired absence of other specified parts of digestive tract
CPT/HCPCS: J1885

== ENCOUNTER 2017-06-08 16:54 | Inpatient (IN) | payer MEDICARE ==
[2017-06-08] MEDS: IPRATROPIUM 0.5MG/ALBUTEROL 2.5MG INH SOL UD 3ML (DUONEB)(J7620) NEB (17:52)
[2017-06-08 17:57] LABS: BASO # 0.1 10^3/uL (0.0-0.2); BASO % 0.3 % (0.0-1.0); HEMATOCRIT 43.6 % (42.0-52.0); HEMOGLOBIN 14.5 g/dl (13.5-17.5); IMMATURE GRANULOCYTE % 1.4 % (0-3.0); LYMPH # 0.5 10^3/uL (1.5-4.5); LYMPH % 3.5 % (24.0-44.0); MEAN CORPUSCULAR HEMOGLOBIN 29.5 pg (27.0-33.0); MEAN CORPUSCULAR HGB CONC 33.3 g/dl (32.0-36.5); MEAN CORPUSCULAR VOLUME 88.8 fl (80.0-96.0); MONO # 0.2 10^3/uL (0.0-0.8); MONO % 1.2 % (0.0-5.0); NEUTROPHILS # 14.5 10^3/uL (1.8-7.7); NEUTROPHILS % 93.6 % (36.0-66.0); PLATELET COUNT, AUTOMATED 275 10^3/uL (150-450); RED BLOOD COUNT 4.91 10^6/uL (4.30-6.10); RED CELL DISTRIBUTION WIDTH 14.4 % (11.5-14.5); WHITE BLOOD COUNT 15.5 10^3/uL (4.0-10.0)
[2017-06-08] MEDS: ASPIRIN 81 MG CHEW TABLET PO (18:02)
[2017-06-08] MEDS: methylPREDNISolone INJ 125 MG/2 ML VIAL (J2930) IV (18:02)
[2017-06-08 18:09] LABS: INR 0.91; PROTHROMBIN TIME 12.3 SECONDS (12.4-14.5)
[2017-06-08 18:12] LABS: ALBUMIN 2.6 GM/DL (3.2-5.2); ALBUMIN/GLOBULIN RATIO 0.59 (1.00-1.93); ALKALINE PHOSPHATASE 232 U/L (45-117); ALT/SGPT 54 U/L (12-78); ANION GAP 7 MEQ/L (8-16); AST/SGOT 24 U/L (7-37); BILIRUBIN,DIRECT 0.1 MG/DL (0.0-0.2); BILIRUBIN,TOTAL 0.3 MG/DL (0.2-1.0); BLOOD UREA NITROGEN 40 MG/DL (7-18); CALCIUM LEVEL 8.4 MG/DL (8.8-10.2); CARBON DIOXIDE LEVEL 29 MEQ/L (21-32); CHLORIDE LEVEL 100 MEQ/L (98-107); CK-MB VALUE MASS 2.3 NG/ML (<3.6); CPK CREATINE PHOSPHOKINASE 23 U/L (39-308); CREATININE FOR GFR 1.84 MG/DL (0.70-1.30); GLOMERULAR FILTRATION RATE 37.4 (>35); GLUCOSE, FASTING 285 MG/DL (70-100); NT-PRO BNP 543 PG/ML (<450); POTASSIUM SERUM 4.5 MEQ/L (3.5-5.1); SODIUM LEVEL 136 MEQ/L (136-145); TROPONIN I < 0.02 NG/ML (< 0.10)
[2017-06-08 18:17] LABS: LACTIC ACID SEPSIS PROTOCOL 2.1 MMOL/L (0.4-2.0)
[2017-06-08] MEDS: FUROSEMIDE 40 MG/4 ML VIAL (J1940) IV (19:26)
[2017-06-08 19:59] LABS: ABG BASE EXCESS 3.2 (-2.0-2.0); ABG HCO3 27.5 MEQ/L (22.0-26.0); ABG O2 SATURATION 94.7 % (95.0-99.0); ABG PARTIAL PRESSURE CO2 40.9 mmHg (35.0-45.0); ABG PARTIAL PRESSURE O2 71.1 mmHg (75.0-100.0); ABG STANDARD HCO3 27.3 MEQ/L (22.0-26.0); ABG TOTAL CO2 28.8 MEQ/L (23.0-31.0); ABG pH (ARTERIAL) 7.446 UNITS (7.350-7.450)
[2017-06-08] MEDS: CHLORHEXIDINE ORAL RINSE 0.12%/15ML 120ML BOTTLE MT (21:00)
[2017-06-08] MEDS: ASPIRIN 81 MG ENTERIC TAB PO (21:00)
[2017-06-08] MEDS: GABAPENTIN 300 MG CAP PO (23:01)
[2017-06-08] MEDS: D5W IV (23:01)
[2017-06-08] MEDS: METHYLPREDNISOLONE IV (23:01)
[2017-06-08] MEDS: MATE ADAPTER IV (23:01)
[2017-06-08] MEDS: HEPARIN SOD (PORCINE) 5000 UNITS/ML VIAL SC (23:02)
[2017-06-08 23:12] LABS: CPK CREATINE PHOSPHOKINASE 32 U/L (39-308); MB/CK RELATIVE INDEX 6.25 (< OR =4); TROPONIN I < 0.02 NG/ML (< 0.10)
[2017-06-08] MEDS: clonazePAM 0.5 MG TAB PO (23:16)
[2017-06-08] MEDS: CEFEPIME HCL 2 GM in D5W MINI-BAG PLUS 50 ML IV (23:36)
[2017-06-09] MEDS: VANCOMYCIN HCL 1,000 MG, VIAL MATE ADAPTER 1 EACH in D5W 250 ML IV (00:10)
[2017-06-09 04:31] LABS: HEMATOCRIT 41.2 % (42.0-52.0); MEAN CORPUSCULAR HEMOGLOBIN 29.6 pg (27.0-33.0); MEAN CORPUSCULAR VOLUME 87.1 fl (80.0-96.0); PLATELET COUNT, AUTOMATED 270 10^3/uL (150-450); RED BLOOD COUNT 4.73 10^6/uL (4.30-6.10); WHITE BLOOD COUNT 14.2 10^3/uL (4.0-10.0)
[2017-06-09 04:49] LABS: ALBUMIN 2.4 GM/DL (3.2-5.2); ALBUMIN/GLOBULIN RATIO 0.57 (1.00-1.93); ALKALINE PHOSPHATASE 195 U/L (45-117); ALT/SGPT 43 U/L (12-78); ANION GAP 7 MEQ/L (8-16); AST/SGOT 20 U/L (7-37); BILIRUBIN,TOTAL 0.3 MG/DL (0.2-1.0); BLOOD UREA NITROGEN 42 MG/DL (7-18); CALCIUM LEVEL 8.6 MG/DL (8.8-10.2); CARBON DIOXIDE LEVEL 31 MEQ/L (21-32); CHLORIDE LEVEL 99 MEQ/L (98-107); CREATININE FOR GFR 1.92 MG/DL (0.70-1.30); GLOMERULAR FILTRATION RATE 35.6 (>35); GLUCOSE, FASTING 269 MG/DL (70-100); MAGNESIUM LEVEL 2.4 MG/DL (1.8-2.4); POTASSIUM SERUM 4.3 MEQ/L (3.5-5.1); SODIUM LEVEL 137 MEQ/L (136-145); TOTAL PROTEIN 6.6 GM/DL (6.4-8.2)
[2017-06-09] MEDS: HEPARIN SOD (PORCINE) 5000 UNITS/ML VIAL SC ×3 (05:50→22:26)
[2017-06-09 06:11] LABS: ABG BASE EXCESS 5.1 (-2.0-2.0); ABG HCO3 29.2 MEQ/L (22.0-26.0); ABG O2 SATURATION 97.6 % (95.0-99.0); ABG PARTIAL PRESSURE CO2 41.3 mmHg (35.0-45.0); ABG PARTIAL PRESSURE O2 105.8 mmHg (75.0-100.0); ABG STANDARD HCO3 29.1 MEQ/L (22.0-26.0); ABG TOTAL CO2 30.5 MEQ/L (23.0-31.0); ABG pH (ARTERIAL) 7.468 UNITS (7.350-7.450)
[2017-06-09] MEDS: IPRATROPIUM 0.5MG/ALBUTEROL 2.5MG INH SOL UD 3ML (DUONEB)(J7620) NEB ×4 (07:53→20:33)
[2017-06-09] MEDS ORDERED: FUROSEMIDE 20 MG/2 ML VIAL (J1940) IV (09:00)
[2017-06-09] MEDS ORDERED: CHLORTHALIDONE 25 MG TAB PO (09:00)
[2017-06-09] MEDS: FUROSEMIDE 40 MG/4 ML VIAL (J1940) IV (09:00)
[2017-06-09] MEDS: MAGNESIUM OXIDE 400 MG TAB (MAG-OX) PO (09:48)
[2017-06-09] MEDS: clonazePAM 0.5 MG TAB PO ×2 (09:48→22:25)
[2017-06-09] MEDS: MULTIVITAMINS/MINERALS THERAP 1 TAB PO (09:48)
[2017-06-09] MEDS: GABAPENTIN 300 MG CAP PO ×2 (09:48→22:25)
[2017-06-09] MEDS: OMEPRAZOLE 20 MG CAP PO (09:48)
[2017-06-09] MEDS: FUROSEMIDE 20 MG/2 ML VIAL (J1940) IV (09:48)
[2017-06-09] MEDS: MATE ADAPTER IV (09:57)
[2017-06-09] MEDS: D5W IV (09:57)
[2017-06-09] MEDS: METHYLPREDNISOLONE IV (09:57)
[2017-06-09] MEDS: VITAMIN D (CHOLECALCIFEROL) 400 INTERNATIONAL UNITS TAB PO (13:06)
[2017-06-09] MEDS: predniSONE 20 MG TAB PO ×2 (13:06→22:25)
[2017-06-09] MEDS: azaTHIOprine 50 MG TAB (J7500) PO (13:23)
[2017-06-09 13:24] LABS: APPEARANCE, URINE CLEAR (CLEAR); BACTERIA, URINE AUTO NEGATIVE (NEGATIVE); BILIRUBIN, URINE AUTO NEGATIVE (NEGATIVE); BLOOD, URINE BLOOD NEGATIVE (NEGATIVE); COLOR, URINE YELLOW (YELLOW); GLUCOSE, URINE (UA) AUTO 2+ mg/dL (NEGATIVE); KETONE, URINE AUTO NEGATIVE (NEGATIVE); LEUKOCYTE ESTERASE, URINE AUTO NEGATIVE (NEGATIVE); NITRITE, URINE AUTO NEGATIVE (NEGATIVE); PROTEIN, URINE AUTO NEGATIVE (NEGATIVE); RBC, URINE AUTO 3 /HPF (0-3); SPECIFIC GRAVITY URINE AUTO 1.009 (1.002-1.035); SQUAMOUS EPITHELIAL CELL UR AU 0 /HPF (0-6); UROBILINOGEN, URINE AUTO 0.2 mg/dL (0.0-2.0); WBC, URINE AUTO 1 /HPF (0-3)
[2017-06-09] MEDS: PARoxetine 20 MG TAB PO (17:11)
[2017-06-09] MEDS: ALLOPURINOL 300 MG TAB PO (17:11)
[2017-06-09] MEDS: FINASTERIDE 5 MG TAB PO (17:11)
[2017-06-09] MEDS ORDERED: MATE ADAPTER IV (21:00)
[2017-06-09] MEDS ORDERED: D5W IV (21:00)
[2017-06-09] MEDS ORDERED: METHYLPREDNISOLONE IV (21:00)
[2017-06-09] MEDS: ASPIRIN 81 MG ENTERIC TAB PO (22:25)
[2017-06-09] MEDS: CEFEPIME HCL 2 GM in D5W MINI-BAG PLUS 50 ML IV (22:25)
[2017-06-10] MEDS: VANCOMYCIN HCL 1,000 MG, VIAL MATE ADAPTER 1 EACH in D5W 250 ML IV (00:41)
[2017-06-10] MEDS: IPRATROPIUM 0.5MG/ALBUTEROL 2.5MG INH SOL UD 3ML (DUONEB)(J7620) NEB ×4 (02:00→15:21)
[2017-06-10] MEDS: ONDANSETRON 4MG/2ML VIAL (J2405) IV (02:14)
[2017-06-10] MEDS: HEPARIN SOD (PORCINE) 5000 UNITS/ML VIAL SC ×2 (05:53→13:50)
[2017-06-10 06:21] LABS: HEMOGLOBIN 13.4 g/dl (13.5-17.5); MEAN CORPUSCULAR HEMOGLOBIN 29.3 pg (27.0-33.0); MEAN CORPUSCULAR HGB CONC 33.5 g/dl (32.0-36.5); MEAN CORPUSCULAR VOLUME 87.5 fl (80.0-96.0); PLATELET COUNT, AUTOMATED 262 10^3/uL (150-450); RED BLOOD COUNT 4.57 10^6/uL (4.30-6.10); WHITE BLOOD COUNT 22.3 10^3/uL (4.0-10.0)
[2017-06-10 06:53] LABS: ALBUMIN 2.2 GM/DL (3.2-5.2); ALKALINE PHOSPHATASE 173 U/L (45-117); ALT/SGPT 37 U/L (12-78); ANION GAP 9 MEQ/L (8-16); AST/SGOT 28 U/L (7-37); BILIRUBIN,TOTAL 0.4 MG/DL (0.2-1.0); BLOOD UREA NITROGEN 49 MG/DL (7-18); CALCIUM LEVEL 8.6 MG/DL (8.8-10.2); CARBON DIOXIDE LEVEL 30 MEQ/L (21-32); CHLORIDE LEVEL 92 MEQ/L (98-107); CREATININE FOR GFR 2.32 MG/DL (0.70-1.30); GLOMERULAR FILTRATION RATE 28.6 (>35); GLUCOSE, FASTING 214 MG/DL (70-100); MAGNESIUM LEVEL 2.2 MG/DL (1.8-2.4); POTASSIUM SERUM 4.2 MEQ/L (3.5-5.1); RHEUMATOID FACTOR QUANT < 10.0 IU/ML (<15.0); SODIUM LEVEL 131 MEQ/L (136-145); TOTAL PROTEIN 6.6 GM/DL (6.4-8.2)
[2017-06-10 07:02] LABS: ERYTHROCYTE SEDIMENTATION RATE 53 mm/hr (0-30)
[2017-06-10] MEDS ORDERED: IPRATROPIUM 0.5MG/ALBUTEROL 2.5MG INH SOL UD 3ML (DUONEB)(J7620) NEB (08:00)
[2017-06-10] MEDS: MAGNESIUM OXIDE 400 MG TAB (MAG-OX) PO (09:46)
[2017-06-10] MEDS: GABAPENTIN 300 MG CAP PO (09:46)
[2017-06-10] MEDS: azaTHIOprine 50 MG TAB (J7500) PO (09:47)
[2017-06-10] MEDS: MULTIVITAMINS/MINERALS THERAP 1 TAB PO (09:47)
[2017-06-10] MEDS: OMEPRAZOLE 20 MG CAP PO (09:47)
[2017-06-10] MEDS: predniSONE 20 MG TAB PO (09:47)
[2017-06-10] MEDS: clonazePAM 0.5 MG TAB PO (10:32)
[2017-06-10] MEDS: VITAMIN D (CHOLECALCIFEROL) 400 INTERNATIONAL UNITS TAB PO (13:50)
[2017-06-10] MEDS: ALPRAZolam 0.25 MG TAB PO (14:47)
[2017-06-10] MEDS: ALLOPURINOL 300 MG TAB PO (17:00)
[2017-06-10] MEDS: FINASTERIDE 5 MG TAB PO (17:00)
[2017-06-10] MEDS: PARoxetine 20 MG TAB PO (17:00)
[2017-06-10] MEDS ORDERED: EPINEPHrine 1MG/10ML SYRINGE 1.5IN (19:22)
[2017-06-12 10:11] LABS: ANTI-GLOMERULAR BASEMENT MEMB 7 units (0-20)
[2017-06-12 10:11] LABS: ANA (HEP2) Negative (.); ANTI DOUBLE STRAND-DNA AB 59 IU/mL (0-9); ANTI JO-1 ANTIBODIES <0.2 AI (0.0-0.9)
[2017-06-18 10:11] LABS: CARBONIC ANHYDRASE VI IgA ABS <1.0 EU/ml (.); CARBONIC ANHYDRASE VI IgG ABS 30.8 EU/ml (.); CARBONIC ANHYDRASE VI IgM ABS 5.8 EU/ml (.); PAROTID SPECIFIC PROTEIN IgA 6.5 EU/ml (.); PAROTID SPECIFIC PROTEIN IgM <1.0 EU/ml (.); SALIVARY PROTEIN 1 IgA 32.6 EU/ml (.); SALIVARY PROTEIN 1 IgM 16.6 EU/ml (.)
== END 2017-06-10 19:23 | disposition expired | DRG 196 ==
LOC: M MSPAV 06-09 18:10 → M ED 16:54 → M ED INP 20:23 → M ICU 22:23
DX: J84.112 Idiopathic pulmonary fibrosis (principal); I50.33 Acute on chronic diastolic (congestive) heart failure; J96.01 Acute respiratory failure with hypoxia; J18.9 Pneumonia, unspecified organism; N17.9 Acute kidney failure, unspecified; E87.2 Acidosis; M10.9 Gout, unspecified; N20.0 Calculus of kidney; I11.0 Hypertensive heart disease with heart failure; F41.9 Anxiety disorder, unspecified; N40.0 Benign prostatic hyperplasia without lower urinary tract symptoms; K21.9 Gastro-esophageal reflux disease without esophagitis; G62.9 Polyneuropathy, unspecified; Z90.49 Acquired absence of other specified parts of digestive tract; Z99.81 Dependence on supplemental oxygen; Z79.82 Long term (current) use of aspirin; Z88.2 Allergy status to sulfonamides; Z91.041 Radiographic dye allergy status; Z91.012 Allergy to eggs; Z88.8 Allergy status to other drugs, medicaments and biological substances; Z79.899 Other long term (current) drug therapy; Y95 Nosocomial condition